=== PATIENT | male | born 1960 | race Caucasian/White ===

== ENCOUNTER 2017-07-22 07:17 | Observation (INO) | payer SELFPAY ==
[~2017-07-22] VITALS: Ht 182.9 cm; Wt 79.6 kg
[2017-07-22] MEDS ORDERED: KETOROLAC 30 MG/ML VIAL (J1885) IV ONE (07:30)
[2017-07-22] MEDS ORDERED: ONDANSETRON 4MG/2ML VIAL (J2405) IV ONE (07:30)
[2017-07-22 07:51] LABS: BASO % 0.2 % (0.0-1.0); EOS # 0.1 K/mm3 (0.0-0.50); EOS % 0.5 % (0.0-3.0); LARGE UNSTAINED CELL # 0.1 K/mm3 (0.0-0.4); LARGE UNSTAINED CELL % 1.3 % (0.0-4.0); LYMPH % 9.1 % (24.0-44.0); MEAN CORPUSCULAR HEMOGLOBIN 32.4 pg (27.0-33.0); MEAN CORPUSCULAR HGB CONC 35.3 g/dl (32.0-36.5); MEAN CORPUSCULAR VOLUME 91.9 fl (80.0-96.0); MONO # 0.5 K/mm3 (0.0-0.8); MONO % 4.2 % (0.0-5.0); NEUTROPHILS # 9.1 K/mm3 (1.8-7.7); NEUTROPHILS % 84.6 % (36.0-66.0); PLATELET COUNT, AUTOMATED 262 k/mm3 (150-450); RED CELL DISTRIBUTION WIDTH 12.6 % (11.5-14.5); WHITE BLOOD COUNT 10.7 K/mm3 (4.0-10.0)
[2017-07-22] MEDS ORDERED: NS 1,000 ML IV ONE (08:00)
[2017-07-22 08:13] LABS: ALBUMIN 4.1 GM/DL (3.2-5.2); ALBUMIN/GLOBULIN RATIO 1.14 (1.00-1.93); ALKALINE PHOSPHATASE 101 U/L (45-117); ALT/SGPT 19 U/L (12-78); AMYLASE 23 U/L (25-115); ANION GAP 8 MEQ/L (8-16); AST/SGOT 11 U/L (15-37); BILIRUBIN,DIRECT 0.2 MG/DL (0.0-0.2); BILIRUBIN,TOTAL 0.9 MG/DL (0.2-1.0); BLOOD UREA NITROGEN 18 MG/DL (7-18); CALCIUM LEVEL 9.5 MG/DL (8.5-10.1); CARBON DIOXIDE LEVEL 28 MEQ/L (21-32); CHLORIDE LEVEL 103 MEQ/L (98-107); CREATININE FOR GFR 1.11 MG/DL (0.70-1.30); GLOMERULAR FILTRATION RATE > 60.0 (>56); GLUCOSE, FASTING 158 MG/DL (70-105); POTASSIUM SERUM 4.1 MEQ/L (3.5-5.1); SODIUM LEVEL 139 MEQ/L (136-145); TOTAL PROTEIN 7.7 GM/DL (6.4-8.2)
--- NOTE | 2017-07-22 08:23 | REP ---
CT of the abdomen pelvis without IV or bowel contrast: There are no comparisons. There is no hydronephrosis on the left on the right. There are vascular atheromatous calcifications in the left renal hilus. There is a nonobstructive right renal 3 ml calcification at the mid pole. There is no perinephric stranding on the right or the left. There is no abdominal aortic aneurysm measuring 3.7 cm. There is a focal soft tissue density along the left lateral margin of the aneurysm, nonspecific, lymph node versus hematoma. This measures [address] for evaluation of the aorta might be considered. The visualized lung rosales are unremarkable. The unenhanced hepatic parenchyma, gallbladder, pancreas, spleen, adrenals, bowel and mesentery are unremarkable. Pelvis: There is a phlebolith on the right. The bladder is unremarkable. There is no ascites or adenopathy. There are large bilateral hydroceles in the visualized upper portion of the scrotum. Impression: No renal or ureteral or bladder calculi. No hydronephrosis. 3.7 cm abdominal aortic aneurysm. Focal soft tissue density along the left lateral margin of the aneurysm compatible with lymph nodes versus periaortic hematoma. Consider contrast enhanced CT for further evaluation of the aorta. Large bilateral scrotal hydroceles. Signed by Eros Pina MD 07/22/2017 08:15 A
[2017-07-22] MEDS ORDERED: MORPHINE 4 MG/ML 1ML SYRINGE IV ONE (08:30)
[2017-07-22] MEDS ORDERED: ISOVUE-370 76% 100ML VIAL (Q9967) As Ordered ONE (08:31)
--- NOTE | 2017-07-22 09:03 | REP ---
SCROTAL ULTRASOUND: Real-time sonographic evaluation of the scrotum and contents were performed. The testicles are normal in size and echotexture, right testicle measuring 4.4 x 2.1 x 3.9 cm and the left testicle 5.3 x 2.7 x 3.0 cm. There is no testicular mass or torsion with blood flow seen in each testicle with duplex Doppler evaluation, RI right testicle 0.81 and left testicle 0.66. Large bilateral septated epididymal cysts or hydroceles are seen. IMPRESSION: Large bilateral septated epididymal cysts or hydroceles. Normal testicles. Signed by Eros Rose MD 07/22/2017 05:37 P
--- NOTE | 2017-07-22 10:02 | REP ---
CT ABDOMEN AND PELVIS WITH IV CONTRAST: TECHNIQUE: Axial contrast enhanced images from the lung bases to the pubic symphysis using 100 mL Isovue 370 intravenous contrast material with multiplanar reformations. The visualized lung bases are clear. The liver, spleen, adrenals, pancreas and kidneys are essentially unremarkable. There is an aneurysm of the distal abdominal aorta which is fusiform in shape and has a maximum diameter of 3.6 cm. There is crescentic low density material along the left side of the aneurysm, consistent with a small contained rupture of the aneurysm, or focal retroperitoneal fibrosis. There is no evidence of active extravasation of contrast. No adenopathy is seen. There is no free air or free fluid. There is no bowel wall thickening. There is no pelvic mass. Note is made of large hydroceles or cysts in the scrotum as seen on today's scrotal ultrasound. IMPRESSION: Fusiform aneurysm distal abdominal aorta with maximum diameter of 3.6 cm in AP dimension. Small crescentic low density material along the left side of the aneurysm, consistent with a small contained rupture of the aneurysm, or focal retroperitoneal fibrosis . Kye Ochoa was informed of these findings at 9:36 a.m., 07/22/2017. Signed by Eros Rose MD 07/22/2017 05:40 P
[2017-07-22] MEDS ORDERED: MOM 30ML SUSPENSION UDC PO PRN (10:30)
[2017-07-22] MEDS ORDERED: ACETAMINOPHEN TAB 650MG DOSE (2X325MG) PO PRN (10:30)
[2017-07-22] MEDS ORDERED: METOCLOPRAMIDE INJ 10MG/2ML VIAL (J2765) IV PRN (10:30)
[2017-07-22] MEDS ORDERED: ONDANSETRON 4MG/2ML VIAL (J2405) IV PRN (10:30)
[2017-07-22] MEDS ORDERED: BISACODYL 10 MG SUPP PR PRN (10:30)
[2017-07-22] MEDS ORDERED: TYLE325T5 PO (11:04)
[2017-07-22] MEDS: DOCUSATE SODIUM 100 MG CAP PO SCH ×2 (13:30→20:47)
[2017-07-22] MEDS: SENOKOT S TAB PO SCH ×2 (13:30→20:47)
[2017-07-22 15:00] VITALS: BP 161/74
[2017-07-22] MEDS: LR 1,000 ML IV SCH ×3 (15:10→23:18)
[2017-07-22 19:50] VITALS: BP 172/88
[2017-07-23 00:50] VITALS: BP 160/78
[2017-07-23 04:39] VITALS: BP 160/76
[2017-07-23 07:41] VITALS: BP 152/68
[2017-07-23] MEDS: SENOKOT S TAB PO SCH (09:01)
[2017-07-23] MEDS: DOCUSATE SODIUM 100 MG CAP PO SCH (09:01)
--- NOTE | 2017-07-23 11:38 | ECGEPIP ---
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
--- NOTE | 2017-08-11 13:19 | DS.PDOC ---
Discharge Summary General Date of Admission Jul 22, 2017 at 10:28 Date of Discharge July 23 2017 Attending Physician: Pete Reece MD Discharge Summary PROCEDURES PERFORMED DURING STAY: CT angiogram. ADMITTING DIAGNOSES: 1. Back pain. 2., Aortic aneurysm. DISCHARGE DIAGNOSES: 1. Back pain. 2., Aortic aneurysm. COMPLICATIONS/CHIEF COMPLAINT: Aaa 3CM-5.5CM, Nausea,Vomiting. HISTORY OF PRESENT ILLNESS: Patient was evaluated in the emergency room and underwent a CT angiogram showing questionable ruptured aneurysm. I reviewed the CT scan and did not agree that the patient had a ruptured aneurysm. Patient was admitted overnight for monitoring. HOSPITAL COURSE: Patient was stable overnight and his back pain is not related to a ruptured aneurysm or his aneurysm in general and is more related to a sacroiliac injury he suffered 10 years ago. DISCHARGE MEDICATIONS: Please see below. ALLERGIES: Please see below. PHYSICAL EXAMINATION ON DISCHARGE: VITAL SIGNS: Please see below. GENERAL: Lying in bed comfortably HEENT: Normal NECK: Supple with no carotid bruits CARDIOVASCULAR EXAMINATION: Regular rate and rhythm RESPIRATORY EXAMINATION: Clear to auscultation bilaterally ABDOMINAL EXAMINATION: Soft nontender nondistended with no palpable pulsatile mass EXTREMITIES: Warm well perfused SKIN: Warm well perfused NEUROLOGICAL EXAMINATION: Awake alert oriented 3 PSYCHIATRIC EXAMINATION: Normal LABORATORY DATA: Please see below. IMAGING: CT scan showed a approximate 3 cm abdominal aortic aneurysm PROGNOSIS: Good ACTIVITY: As tolerated. DIET: Normal. DISCHARGE PLAN: Follow-up with me in 3-4 months DISPOSITION: 01 Home, Self-Care. DISCHARGE CONDITION: Stable. TIME SPENT ON DISCHARGE: Greater than 30 minutes. Discharge Medications Scheduled PRN Acetaminophen (Tylenol) 325 Mg Tab, 650 MG PO QID PRN for PAIN, (Reported) Allergies Coded Allergies: No Known Allergies (Unverified , 07/22/17) Pete Reece MD Aug 11, 2017 13:19
== END 2017-07-23 11:32 | disposition home or self-care (01) ==
LOC: M ED 07:17 → M ED INP 10:28 → M PCU 14:40
PROVIDERS: ADMIT Surgery Vascular Surgery; ATTEND Surgery Vascular Surgery
DX: M54.5 Low back pain (principal); I71.4 Abdominal aortic aneurysm, without rupture; R11.2 Nausea with vomiting, unspecified; F17.210 Nicotine dependence, cigarettes, uncomplicated
CPT/HCPCS: 36415; 74176; 74177; 76870; 80048; 80076; 81001; 82150; 82550; 82553; 83690; 85025; 85652; 86140; 87040; 93005; 93041; 93976; 99285; J1885; J2405; Q9967

== ENCOUNTER 2019-02-18 06:44 | Emergency (ER) | payer SELFPAY ==
[~2019-02-18 06:44] MED LIST: TYLE325T5 PO
[2019-02-18] MEDS ORDERED: SODIUM BICARBONATE 8.4% INJ 50 ML SYRINGE ONE (06:45)
[2019-02-18] MEDS ORDERED: EPINEPHrine 1MG/10ML SYRINGE 1.5IN ONE (06:45)
[2019-02-18] MEDS ORDERED: EPINEPHrine 1MG/10ML SYRINGE 1.5IN IV STA (07:37)
[2019-02-18] MEDS ORDERED: SODIUM BICARBONATE 8.4% INJ 50 ML SYRINGE IV STA (07:37)
[2019-02-18] MEDS ORDERED: NS 1,000 ML IV ONE (07:45)
== END 2019-02-18 10:30 | disposition expired ==
LOC: M ED 06:44
DX: I46.9 Cardiac arrest, cause unspecified (principal); I71.4 Abdominal aortic aneurysm, without rupture

== ENCOUNTER → 2019-02-20 | Outpatient (REF) | LOC: M LAB 11:49 ==